=== PATIENT | female | born 1980 | race Hispanic/Latino ===

== ENCOUNTER 2018-01-21 06:43 | Observation (INO) | payer BC ==
[2018-01-20 13:54] LABS: HEMATOCRIT 40.7 % (36-48); LYMPHOCYTES % (AUTO) 15.3 % (21.0-51.0); MEAN CORPUSCULAR HEMOGLOBIN 31.1 pg (27.0-33.0); MEAN CORPUSCULAR HGB CONC 34.2 g/dL (32.0-36.0); MEAN CORPUSCULAR VOLUME 90.8 fL (79-99); MONOCYTES % (AUTO) 5.9 % (3.0-13.0); NEUTROPHILS % (AUTO) 72.8 % (40.0-77.0); PLATELET COUNT (AUTO) 306 K/uL (130-400); RED BLOOD CELL COUNT(AUTO) 4.48 MIL/uL (4.00-5.50); RED CELL DISTRIBUTION WIDTH 13.3 % (11.0-15.5); WHITE BLOOD COUNT (AUTO) 10.5 K/uL (4.8-10.8)
[2018-01-20 13:57] VITALS: BP 110/70
[2018-01-20] MEDS: CEFAZOLIN SODIUM 1 GM VIAL IVP SCH (15:15)
[2018-01-21] VITALS (24 sets, daily range): BP systolic 118–152; BP diastolic 65–84
[~2018-01-21] VITALS: Ht 152.4 cm; Wt 76.2 kg
[~2018-01-21 06:43] MED LIST: LACTATED RINGERS 1000ML 1,000 ML IV SCH
[2018-01-21] MEDS ORDERED: PROPOFOL 10 MG/ML 20ML VIAL IV ONE (09:59)
[2018-01-21] MEDS ORDERED: SUCCINYLCHOLINE 200MG/10ML SYR ONE (09:59)
[2018-01-21] MEDS ORDERED: LIDOCAINE PF 2% 5ML ABBOJECT ONE (09:59)
[2018-01-21] MEDS ORDERED: FENTANYL CITRATE PF 50 MCG/1 ML 2ML VIAL ONE ×2 (10:00→12:18)
[2018-01-21] MEDS ORDERED: ROCURONIUM 10MG/1ML SYR 10 MG/ML ML ONE (10:00)
[2018-01-21] MEDS: CEFAZOLIN SODIUM 1 GM VIAL IVP SCH (11:15)
[2018-01-21] MEDS ORDERED: GLYCOPYRROLATE 1 MG/5 ML SYRINGE ONE (11:30)
[2018-01-21] MEDS ORDERED: NEOSTIGMINE 5MG/5ML SYR IV ONE (12:38)
[2018-01-21] MEDS ORDERED: ONDANSETRON HCL 4 MG/2 ML VIAL ONE ×3 (13:02→14:02)
[2018-01-21] MEDS ORDERED: KETOROLAC TROMETHAMINE 30MG/ML ONE (13:02)
[2018-01-21] MEDS ORDERED: MEPERIDINE-PF 25 MG/ML SYG ONE ×2 (13:41→13:49)
[2018-01-21] MEDS ORDERED: DEXTROSE 5 %-0.45 % NACL 1,000 ML IV PRN (14:56)
[2018-01-21] MEDS ORDERED: BISACODYL 10 MG SUPP.RECT RC PRN (15:00)
[2018-01-21] MEDS ORDERED: PROMETHAZINE HCL 25 MG/ML 1ML AMPULE IM PRN (15:00)
[2018-01-21] MEDS: DEXTROSE 5 %-0.45 % NACL 1,000 ML IV SCH ×2 (15:15→23:51)
[2018-01-21] MEDS: PROMETHAZINE HCL 25 MG/ML 1ML AMPULE IM PRN ×2 (15:23→20:04)
[2018-01-21] MEDS: MEPERIDINE-PF 75 MG/ML SYG IM PRN ×2 (15:23→20:04)
[2018-01-21] MEDS: SIMETHICONE 80 MG TAB.CHEW PO PRN (23:56)
[2018-01-21] MEDS: DOCUSATE SODIUM 100 MG CAP PO PRN (23:56)
[2018-01-21] MEDS: ACETAMINOPHEN-CODEINE 300/30MG TAB PO PRN (23:58)
[2018-01-22 00:24] VITALS: BP 110/76
[2018-01-22] MEDS: PROMETHAZINE HCL 25 MG/ML 1ML AMPULE IM PRN (02:52)
[2018-01-22] MEDS: MEPERIDINE-PF 75 MG/ML SYG IM PRN (02:53)
[2018-01-22 04:23] VITALS: BP 112/70
[2018-01-22 05:38] LABS: HEMATOCRIT 37.4 % (36-48); MEAN CORPUSCULAR HEMOGLOBIN 30.9 pg (27.0-33.0); MEAN CORPUSCULAR HGB CONC 33.8 g/dL (32.0-36.0); MEAN CORPUSCULAR VOLUME 91.4 fL (79-99); PLATELET COUNT (AUTO) 295 K/uL (130-400); RED BLOOD CELL COUNT(AUTO) 4.09 MIL/uL (4.00-5.50); RED CELL DISTRIBUTION WIDTH 13.6 % (11.0-15.5); WHITE BLOOD COUNT (AUTO) 15.3 K/uL (4.8-10.8)
[2018-01-22 07:52] VITALS: BP 121/76
[2018-01-22] MEDS: DOCUSATE SODIUM 100 MG CAP PO PRN (09:46)
[2018-01-22] MEDS: SIMETHICONE 80 MG TAB.CHEW PO PRN ×2 (09:46→18:29)
[2018-01-22] MEDS: IBUPROFEN 600 MG TABLET PO PRN ×2 (09:47→18:30)
[2018-01-22] MEDS: ACETAMINOPHEN-CODEINE 300/30MG TAB PO PRN (11:34)
[2018-01-22 11:35] VITALS: BP 121/72
[2018-01-22 15:19] VITALS: BP 98/56
== END 2018-01-22 19:35 | disposition home or self-care (01) ==
LOC: DAH 06:43 → WSH 06:44 → DAH 06:44 → WSH 14:40
PROVIDERS: ADMIT Obstetrics & Gynecology; ATTEND Obstetrics & Gynecology
DX: N92.1 Excessive and frequent menstruation with irregular cycle (principal); D25.9 Leiomyoma of uterus, unspecified
CPT/HCPCS: 36415 ×2; 58260; 84702; 85025; 85027; 86850; 86900; 86901; 88305; 88307; 96372 ×2; A4351; A4510; A4606; A4930; G0378 ×37; J0330; J0690 ×2; J1885; J2001; J2175 ×5; J2405 ×3; J2550 ×3; J2704; J3010 ×2; J3490; J7120 ×2; J2710